=== PATIENT | male | born 2000 | race Two or more races ===

== ENCOUNTER 2022-03-13 01:16 | Emergency (ER) | payer SELFPAY ==
[~2022-03-13] VITALS: Ht 167.6 cm; Wt 54.4 kg
--- NOTE | 2022-03-13 01:18 | NUR ---
CONTACT FROM [facility]; ASH MASON [phone]
--- NOTE | 2022-03-13 01:18 | NUR ---
DEMI LIGHT TO BED #7
[2022-03-13 01:25] VITALS: BP 124/79
--- NOTE | 2022-03-13 01:47 | NUR ---
Patient being evaluated by physician at bedside.
--- NOTE | 2022-03-13 02:07 | NUR ---
FRIEND AT BEDSIDE
--- NOTE | 2022-03-13 02:10 | NUR ---
Patient presented to facility under the influence of Alcohol. Patient is currently ambulatory with steady gait, able to walk unassisted. Positive gag reflex. Alert and oriented. Is not driving self for discharge out of facility. Patient taken home by friend at this time.
== END 2022-03-13 02:10 | disposition home or self-care (01) ==
LOC: MED 01:16
DX: F10.129 Alcohol abuse with intoxication, unspecified (principal); F32.A Depression, unspecified; Y90.9 Presence of alcohol in blood, level not specified
CPT/HCPCS: 99283